=== PATIENT | female | born 1950 ===

== ENCOUNTER 2023-01-18 10:57 | Inpatient (IN) | payer OTHER ==
[~2023-01-18] VITALS: Ht 154.9 cm; Wt 90.7 kg
[2023-01-19] MEDS ORDERED: HORIZANT300 MG PO (13:40)
[2023-01-19] MEDS ORDERED: HUMALOG100 UNIT/1 (13:40)
[2023-01-19] MEDS ORDERED: LANTUS (13:40)
[2023-01-19] MEDS ORDERED: ATORVASTATIN CA20 MG PO (13:41)
[2023-01-19] MEDS ORDERED: IRBESARTAN-HCT1 EACH PO (13:41)
[2023-01-19] MEDS ORDERED: FAMOTI PO (13:42)
[2023-01-19] MEDS ORDERED: FARXIGA10 MG PO (13:42)
[2023-01-23] MEDS ORDERED: NABUMETONE750 MG (13:07)
[2023-01-23] MEDS ORDERED: FAMOTIDINE40 MG (13:07)
[2023-01-23] MEDS ORDERED: CLOTRIMAZOLE-BE15 G1 (13:07)
[2023-01-23] MEDS ORDERED: GABAPENTIN300 M2 (13:07)
[2023-01-26] MEDS ORDERED: INTESTINEX680 M1 PO (10:03)
[2023-01-26] MEDS ORDERED: LEVSIN/SL0.125 MG SL (10:03)
[2023-01-26] MEDS ORDERED: LEVOFLOXACIN500 MG PO (10:03)
[2023-01-26] MEDS ORDERED: PEPCID AC20 MG PO (10:03)
[2023-01-26] MEDS ORDERED: TRAM1TAB98 PO (10:04)
== END 2023-01-26 11:01 | disposition home or self-care (01) | DRG 331 ==
LOC: ADM 01-19 09:00 → EDSTATUS 01-19 09:00 → O/R 01-23 08:21 → SURG 01-23 08:21
PROVIDERS: Surgery; ADMIT Surgery; ATTEND Surgery
PROC: 07BC0ZZ Excision of Pelvis Lymphatic, Open Approach (ICD-10-PCS; 2023-01-23)
PROC: 0TN78ZZ Release Left Ureter, Via Natural or Artificial Opening Endoscopic (ICD-10-PCS; 2023-01-23)
PROC: 0DTU0ZZ Resection of Omentum, Open Approach (ICD-10-PCS; 2023-01-23)
PROC: 0DJD8ZZ Inspection of Lower Intestinal Tract, Via Natural or Artificial Opening Endoscopic (ICD-10-PCS; 2023-01-23)
PROC: 0TPD8DZ Removal of Intraluminal Device from Urethra, Via Natural or Artificial Opening Endoscopic (ICD-10-PCS; 2023-01-23)
PROC: 0DTN0ZZ Resection of Sigmoid Colon, Open Approach (ICD-10-PCS; principal; 2023-01-23 16:00)
PROC: 0DBP0ZZ Excision of Rectum, Open Approach (ICD-10-PCS; 2023-01-23 16:00)
DX: C19 Malignant neoplasm of rectosigmoid junction (principal); N73.6 Female pelvic peritoneal adhesions (postinfective); N99.4 Postprocedural pelvic peritoneal adhesions; N13.5 Crossing vessel and stricture of ureter without hydronephrosis; R59.0 Localized enlarged lymph nodes; Z53.31 Laparoscopic surgical procedure converted to open procedure

== ENCOUNTER 2023-01-19 11:43 | Outpatient (CLI) | payer OTHER ==
[2023-01-19] MEDS ORDERED: LANTUS (13:40)
[2023-01-19] MEDS ORDERED: HORIZANT300 MG PO (13:40)
[2023-01-19] MEDS ORDERED: HUMALOG100 UNIT/1 (13:40)
[2023-01-19] MEDS ORDERED: ATORVASTATIN CA20 MG PO (13:41)
[2023-01-19] MEDS ORDERED: IRBESARTAN-HCT1 EACH PO (13:41)
[2023-01-19] MEDS ORDERED: FARXIGA10 MG PO (13:42)
[2023-01-19] MEDS ORDERED: FAMOTI PO (13:42)
== END 2023-01-19 12:03 | disposition home or self-care (01) ==
LOC: LAB 11:43
PROVIDERS: ATTEND Surgery
DX: N39.0 Urinary tract infection, site not specified (principal); D68.8 Other specified coagulation defects; D65 Disseminated intravascular coagulation [defibrination syndrome]; C18.7 Malignant neoplasm of sigmoid colon; R19.4 Change in bowel habit; R93.5 Abnormal findings on diagnostic imaging of other abdominal regions, including retroperitoneum; Z03.818 Encounter for observation for suspected exposure to other biological agents ruled out; Z20.822 Contact with and (suspected) exposure to COVID-19